=== PATIENT | female | born 1985 | race Caucasian/White ===

== ENCOUNTER 2016-06-05 12:47 | Emergency (ER) | payer MEDICAID ==
[~2016-06-05] VITALS: Ht 157.5 cm; Wt 59.0 kg
[~2016-06-05 12:47] MED LIST: ACET-1600 PO; ALBU8.5H5 INH; CARB200T PO; CEFD300C2 PO; LEVO750T6 PO; TOPI100T24 PO; TOPI200T25 PO; [UNRECOGNIZED DRUG - REMARK]
[2016-06-05] MEDS ORDERED: SODIUM CHLORIDE 0.9% 1,000 ML IV ONE (13:01)
[2016-06-05 13:25] LABS: HEMOGLOBIN 14.9 g/dL (11.7-16.4)
[2016-06-05] MEDS ORDERED: SODIUM CHLORIDE FLUSH 10ML SYR IVF ONE (13:30)
[2016-06-05 13:38] LABS: ASPARTATE AMINO TRANSFERASE 22 U/L (15-37); BLOOD UREA NITROGEN 11 mg/dL (7-18)
[2016-06-05 14:27] VITALS: BP 115/80
== END 2016-06-05 15:17 | disposition home or self-care (01) ==
LOC: ED 15:10
DX: S16.1XXA Strain of muscle, fascia and tendon at neck level, initial encounter (principal); S09.90XA Unspecified injury of head, initial encounter; G40.919 Epilepsy, unspecified, intractable, without status epilepticus; Z88.8 Allergy status to other drugs, medicaments and biological substances; X58.XXXA Exposure to other specified factors, initial encounter; Y93.89 Activity, other specified; Y92.89 Other specified places as the place of occurrence of the external cause; Y99.9 Unspecified external cause status
CPT/HCPCS: 36415; 70450; 72125; 80053; 84703; 85025; 96360; 96361; 99285; J7030

== ENCOUNTER 2016-07-06 21:14 | Emergency (ER) | payer MEDICAID ==
[~2016-07-06 21:14] MED LIST changes: -CEFD300C2 PO; +CEFD300C37 PO
== END 2016-07-06 21:47 | disposition left against medical advice (07) ==
LOC: ED 21:41
DX: R05 Cough (principal); R06.02 Shortness of breath; Z53.21 Procedure and treatment not carried out due to patient leaving prior to being seen by health care provider

== ENCOUNTER 2016-09-02 11:36 | Emergency (ER) | payer MEDICAID ==
[~2016-09-02] VITALS: Ht 157.5 cm; Wt 61.6 kg
[2016-09-02 11:37] VITALS: BP 113/80
== END 2016-09-02 13:00 | disposition home or self-care (01) ==
LOC: ED 12:40
DX: S60.211A Contusion of right wrist, initial encounter (principal); S60.221A Contusion of right hand, initial encounter; N30.01 Acute cystitis with hematuria; Z88.8 Allergy status to other drugs, medicaments and biological substances; Z91.013 Allergy to seafood; X58.XXXA Exposure to other specified factors, initial encounter; Y93.89 Activity, other specified; Y99.8 Other external cause status; Y92.410 Unspecified street and highway as the place of occurrence of the external cause
CPT/HCPCS: 81001

== ENCOUNTER 2016-09-26 15:05 | Emergency (ER) | payer MEDICAID ==
[~2016-09-26] VITALS: Ht 157.5 cm; Wt 60.2 kg
[2016-09-26] MEDS ORDERED: ONDANSETRON 2MG/ML, 2ML IVPush ONE (15:30)
[2016-09-26] MEDS ORDERED: FAMOTIDINE 20 MG/2 ML IVP ONE (15:30)
[2016-09-26] MEDS ORDERED: SODIUM CHLORIDE FLUSH 10ML SYR IVF ONE (15:30)
[2016-09-26] MEDS ORDERED: SODIUM CHLORIDE 0.9% 1,000ML IVBOLUS ONE (15:30)
[2016-09-26 15:41] LABS: HEMOGLOBIN 14.7 g/dL (11.7-16.4); WHITE BLOOD COUNT 11.9 x10^3/uL (3.4-10)
[2016-09-26] MEDS ORDERED: ONDANSETRON 2MG/ML, 2ML ONE (15:45)
[2016-09-26] MEDS ORDERED: FAMOTIDINE 20 MG/2 ML ONE (15:45)
[2016-09-26 15:50] LABS: ASPARTATE AMINO TRANSFERASE 21 U/L (15-37); BLOOD UREA NITROGEN 11 mg/dL (7-18)
[2016-09-26 16:16] LABS: DAU SCREEN DISCLAIMER
[2016-09-26] MEDS ORDERED: CEFTRIAXONE PMX 1GM/50ML 50 ML ONE ×2 (17:56→18:37)
[2016-09-26] MEDS: CEFTRIAXONE PMX 1GM/50ML 50 ML IVPB ONE ×2 (17:59→18:44)
[2016-09-26 19:18] VITALS: BP 124/91
== END 2016-09-26 19:24 | disposition home or self-care (01) ==
LOC: ED 16:50
DX: N30.90 Cystitis, unspecified without hematuria (principal); E86.0 Dehydration; R11.2 Nausea with vomiting, unspecified; F17.200 Nicotine dependence, unspecified, uncomplicated; G40.909 Epilepsy, unspecified, not intractable, without status epilepticus
CPT/HCPCS: 36415; 74020; 74177; 80053; 80307; 81001; 83690; 84703; 85025; 87077; 87086; 96361; 96365; 96375; 99285; J0696; J2405; J7030; 87186; S0028

== ENCOUNTER 2016-12-10 11:05 | Emergency (ER) | payer MEDICAID ==
[~2016-12-10] VITALS: Ht 160 cm; Wt 60.0 kg
[2016-12-10] MEDS ORDERED: KETOROLAC 30 MG/1 ML ONE (11:25)
[2016-12-10] MEDS ORDERED: SODIUM CHLORIDE FLUSH 10ML SYR IVF ONE (11:30)
[2016-12-10] MEDS ORDERED: SODIUM CHLORIDE 0.9% 1,000ML IVBOLUS ONE (11:30)
[2016-12-10] MEDS ORDERED: CHLORDIAZEPOXIDE 10 MG CAPSULE PO PRN (11:30)
[2016-12-10] MEDS ORDERED: KETOROLAC 30 MG/1 ML IVPush ONE (11:30)
[2016-12-10 12:05] LABS: HEMATOCRIT 49.3 % (34.6-47.8); HEMOGLOBIN 16.7 g/dL (11.7-16.4); WHITE BLOOD COUNT 12.3 x10^3/uL (3.4-10)
[2016-12-10 12:18] LABS: ASPARTATE AMINO TRANSFERASE 18 U/L (15-37); BLOOD UREA NITROGEN 17 mg/dL (7-18)
[2016-12-10] MEDS ORDERED: CEFTRIAXONE PMX 1GM/50ML 50 ML ONE (12:55)
[2016-12-10] MEDS ORDERED: CEFTRIAXONE PMX 1GM/50ML 50 ML IV ONE (13:00)
[2016-12-10] MEDS ORDERED: TOPI200T25 PO (13:18)
[2016-12-10] MEDS ORDERED: ALPR2TAB2 PO (13:18)
[2016-12-10] MEDS ORDERED: CARB200T PO ×2 (13:18)
[2016-12-10] MEDS ORDERED: TOPI100T24 PO (13:18)
[2016-12-10 13:33] VITALS: BP 113/80
== END 2016-12-10 13:37 | disposition home or self-care (01) ==
LOC: ED 12:49
DX: R07.9 Chest pain, unspecified (principal); F11.10 Opioid abuse, uncomplicated
CPT/HCPCS: 36415; 71010; 80053; 83605; 84145; 85025; 87040; 93005; 96361; 96365; 96375; 99285; J0696; J1885; J7030

== ENCOUNTER 2017-03-24 23:52 | Emergency (ER) | payer MEDICAID ==
[~2017-03-24] VITALS: Ht 160 cm; Wt 55.7 kg
[~2017-03-24 23:52] MED LIST changes: +ALPR2TAB2 PO
[2017-03-25] MEDS ORDERED: NALOXONE 1 MG/ML, 2ML ONE (00:27)
[2017-03-25] MEDS ORDERED: NALOXONE 1 MG/ML, 2ML IVPush ONE (00:30)
[2017-03-25] MEDS ORDERED: SODIUM CHLORIDE 0.9% 1,000ML IVBOLUS ONE (00:30)
[2017-03-25 07:23] VITALS: BP 114/82
== END 2017-03-25 07:51 | disposition home or self-care (01) ==
LOC: ED 23:59
DX: T40.601A Poisoning by unspecified narcotics, accidental (unintentional), initial encounter (principal); G93.40 Encephalopathy, unspecified; F15.10 Other stimulant abuse, uncomplicated; Z72.9 Problem related to lifestyle, unspecified; Z75.9 Unspecified problem related to medical facilities and other health care; Y92.89 Other specified places as the place of occurrence of the external cause
CPT/HCPCS: 96361; 96374; 99291; J2310; J7030

== ENCOUNTER 2017-06-03 11:27 | Emergency (ER) | payer MEDICAID ==
[~2017-06-03] VITALS: Ht 160 cm; Wt 60.0 kg
[2017-06-03] MEDS ORDERED: ASPIRIN 81 MG TABLET CHEW PO ONE (13:00)
[2017-06-03 13:22] LABS: BASOPHILS # (AUTO) 0.04 x10^3/uL (0-0.1); BASOPHILS % (AUTO) 0 % (0-1); EOSINOPHILS # (AUTO) 0.14 x10^3/uL (0-0.4); EOSINOPHILS % (AUTO) 1 % (1-7); LYMPHOCYTES # (AUTO) 1.82 x10^3/uL (1-3.4); LYMPHOCYTES % (AUTO) 11 % (22-44); MD NO; MEAN CORPUSCULAR HEMOGLOBIN 28.3 pg (27.0-34.8); MEAN CORPUSCULAR HGB CONC 33.3 g/dL (32.4-35.8); MEAN PLATELET VOLUME 8.6 fL (7.4-10.4); MONOCYTES # (AUTO) 0.94 x10^3/uL (0.2-0.8); MONOCYTES % (AUTO) 5 % (2-9); NEUTROPHILS # (AUTO) 14.29 x10^3/uL (1.8-6.8); NEUTROPHILS % (AUTO) 83 % (42-75); PLATELET COUNT 320 x10^3/uL (130-400); RED BLOOD COUNT 5.79 x10^6/uL (3.82-5.3); RED CELL DISTRIBUTION WIDTH 13.7 % (9.6-15.2)
[2017-06-03 13:32] LABS: ALBUMIN 3.7 g/dL (3.4-5.0); ANION GAP 5 mmol/L (5-15); CALCIUM 8.9 mg/dL (8.5-10.1); CHLORIDE 104 mmol/L (98-107); CREATININE 0.81 mg/dL (0.55-1.02)
[2017-06-03 13:35] LABS: TROPONIN I < 0.015 ng/mL (0.000-0.045)
[2017-06-03 14:11] VITALS: BP 110/81
== END 2017-06-03 15:17 | disposition home or self-care (01) ==
LOC: ED 14:45
DX: J15.9 Unspecified bacterial pneumonia (principal); G40.909 Epilepsy, unspecified, not intractable, without status epilepticus; F17.200 Nicotine dependence, unspecified, uncomplicated
CPT/HCPCS: 36415; 71045; 80048; 82040; 83880; 84484; 85025; 93005; 99285

== ENCOUNTER 2017-07-28 19:12 | Emergency (ER) | payer MEDICAID ==
[~2017-07-28] VITALS: Ht 160 cm; Wt 66.1 kg
[2017-07-28 19:15] VITALS: BP 127/86
== END 2017-07-28 20:20 | disposition home or self-care (01) ==
LOC: ED 19:47
DX: K02.9 Dental caries, unspecified (principal); K08.89 Other specified disorders of teeth and supporting structures
CPT/HCPCS: 99283

== ENCOUNTER 2018-06-04 15:18 | Emergency (ER) | payer SELFPAY ==
[~2018-06-04] VITALS: Ht 157.5 cm; Wt 64.0 kg
[2018-06-04 15:37] VITALS: BP 118/70
[2018-06-04] MEDS ORDERED: ACETAMINOPHEN 325 MG TABLET ONE (16:17)
[2018-06-04] MEDS ORDERED: ACETAMINOPHEN 325 MG TABLET PO ONE (16:30)
--- NOTE | 2018-06-04 16:47 | NUR ---
Patient/Caregiver given discharge instructions and they have confirmed that they understand the instructions. Patient ambulatory with steady gait.
== END 2018-06-04 16:49 | disposition home or self-care (01) ==
LOC: ED 16:48
DX: S63.642A Sprain of metacarpophalangeal joint of left thumb, initial encounter (principal); G40.909 Epilepsy, unspecified, not intractable, without status epilepticus; Z72.9 Problem related to lifestyle, unspecified; W51.XXXA Accidental striking against or bumped into by another person, initial encounter; Y93.89 Activity, other specified; Y92.89 Other specified places as the place of occurrence of the external cause; Y99.8 Other external cause status
CPT/HCPCS: 99283

== ENCOUNTER 2018-09-01 21:47 | Emergency (ER) | payer MEDICAID ==
[~2018-09-01] VITALS: Ht 157.5 cm; Wt 59.1 kg
[2018-09-01 21:49] VITALS: BP 112/78
== END 2018-09-01 22:29 | disposition home or self-care (01) ==
LOC: ED 22:23
DX: S16.1XXA Strain of muscle, fascia and tendon at neck level, initial encounter (principal); S60.222A Contusion of left hand, initial encounter; F15.20 Other stimulant dependence, uncomplicated; G40.909 Epilepsy, unspecified, not intractable, without status epilepticus; F17.210 Nicotine dependence, cigarettes, uncomplicated; Y04.0XXA Assault by unarmed brawl or fight, initial encounter; Y93.89 Activity, other specified; Y92.410 Unspecified street and highway as the place of occurrence of the external cause; Y99.8 Other external cause status
CPT/HCPCS: 29260; 72050; 99283

== ENCOUNTER 2018-09-09 01:42 | Emergency (ER) | payer MEDICAID ==
[~2018-09-09] VITALS: Ht 157.5 cm; Wt 58.4 kg
[2018-09-09 01:44] VITALS: BP 118/89
== END 2018-09-09 02:49 | disposition home or self-care (01) ==
LOC: ED 02:30
DX: L03.114 Cellulitis of left upper limb (principal); F15.129 Other stimulant abuse with intoxication, unspecified; F17.200 Nicotine dependence, unspecified, uncomplicated; G40.909 Epilepsy, unspecified, not intractable, without status epilepticus; Z72.9 Problem related to lifestyle, unspecified; Z91.14 Patient's other noncompliance with medication regimen
CPT/HCPCS: 99284

== ENCOUNTER 2019-03-01 18:39 | Emergency (ER) | payer MEDICAID ==
[~2019-03-01] VITALS: Ht 157.5 cm; Wt 63.7 kg
[~2019-03-01 18:39] MED LIST changes: +ACET325T26 PO; +NICO-486 TD
[2019-03-01 18:41] VITALS: BP 123/80
[2019-03-01] MEDS ORDERED: ALBUTEROL/IPRATROPIUM 2.5MG/0.5MG, 3 ML ONE (19:21)
[2019-03-01] MEDS ORDERED: AZITHROMYCIN 500 MG TABLET ONE (19:29)
[2019-03-01] MEDS ORDERED: ALBUTEROL/IPRATROPIUM 2.5MG/0.5MG, 3 ML NPPB ONE (19:30)
[2019-03-01] MEDS ORDERED: AZITHROMYCIN 500 MG TABLET PO ONE (19:30)
--- NOTE | 2019-03-01 20:36 | NUR ---
PT TO FOLLOW UP AT [facility]. PT ENCOURAGED TO RETURN TO THE ER IF ANY NEW OR WORSENING SYMPTOMS ARISE. PT ENCOURAGED TO UP WATER INTAKE AND TO REFRAIN FROM SMOKING. WHILE GIVEN PRIVACY TO CHANGE IN ROOM PT HEARD YELLING AT FRIEND IN ROOM "DON'T TOUCH ME BRO, GET YOUR HANDS OFF ME." PT AMBULATES INTO HALLWAY THEN TURNS TOWARD DISCHARGE WITH A STEADY GAIT AND REPEATEDLY STATING "HOW ARE YOU GUYS JUST GONNA LET SOMEONE TOUCH ME? PT. RESPS EVEN AND UNLABORED. COUGH STILL PRESENT.
== END 2019-03-01 20:38 | disposition home or self-care (01) ==
LOC: ED 20:30
DX: J20.9 Acute bronchitis, unspecified (principal); F17.200 Nicotine dependence, unspecified, uncomplicated; G40.909 Epilepsy, unspecified, not intractable, without status epilepticus
CPT/HCPCS: 71045; 93005; 94640; 99283; J7512; J7620

== ENCOUNTER 2019-08-28 12:47 | Emergency (ER) | payer MEDICAID ==
[~2019-08-28] VITALS: Ht 157.5 cm; Wt 43.0 kg
[2019-08-28] MEDS ORDERED: SODIUM CHLORIDE 0.9% 1,000 ML IV ONE ×2 (13:13→15:39)
[2019-08-28] MEDS ORDERED: SODIUM CHLORIDE FLUSH 10ML SYR IVF ONE (13:30)
[2019-08-28] MEDS ORDERED: SODIUM CHLORIDE 0.9% 1,000ML IVBOLUS ONE (13:30)
[2019-08-28] MEDS ORDERED: ONDANSETRON 2MG/ML, 2ML IVPush ONE (13:30)
[2019-08-28 13:31] LABS: MICROSCOPIC AUTO
[2019-08-28] MEDS ORDERED: MORPHINE SULFATE 4 MG/ML, 1ML ONE ×2 (13:33→15:45)
[2019-08-28] MEDS ORDERED: ONDANSETRON 2MG/ML, 2ML ONE (13:33)
[2019-08-28] MEDS: MORPHINE SULFATE 4 MG/ML, 1ML IVPush PRN ×2 (13:36→15:56)
--- NOTE | 2019-08-28 13:38 | NUR ---
URINE COLLECTED/SENT TO LAB. IV PLACED, LABS DRAWN WITH START. NS BOLUS AND MEDS GIVEN FOR 10/10 EPIGASTRIC PAIN. PT TO XRAY.
[2019-08-28 13:41] LABS: BASOPHILS # (AUTO) 0.14 x10^3/uL (0-0.1); BASOPHILS % (AUTO) 1 % (0-1); EOSINOPHILS # (AUTO) 0.17 x10^3/uL (0-0.4); EOSINOPHILS % (AUTO) 1 % (1-7); LYMPHOCYTES % (AUTO) 9 % (22-44); MD NO; MEAN CORPUSCULAR HEMOGLOBIN 28.8 pg (27.0-34.8); MEAN CORPUSCULAR HGB CONC 32.9 g/dL (32.4-35.8); MEAN CORPUSCULAR VOLUME 87.3 fL (80-100); MEAN PLATELET VOLUME 8.8 fL (7.4-10.4); MONOCYTES % (AUTO) 6 % (2-9); NEUTROPHILS # (AUTO) 14.71 x10^3/uL (1.8-6.8); NEUTROPHILS % (AUTO) 83 % (42-75); PLATELET COUNT 296 x10^3/uL (130-400); RED CELL DISTRIBUTION WIDTH 14.4 % (9.6-15.2)
[2019-08-28 13:52] LABS: ALANINE AMINOTRANSFERASE 42 U/L (12-78); ALBUMIN 3.4 g/dL (3.4-5.0); ANION GAP 4 mmol/L (5-15); CALCIUM 9.3 mg/dL (8.5-10.1); CHLORIDE 103 mmol/L (98-107); CREATININE 0.79 mg/dL (0.55-1.02)
[2019-08-28 13:57] LABS: ALKALINE PHOSPHATASE 110 U/L (45-117); BILIRUBIN,TOTAL 0.4 mg/dL (0.2-1.0); TOTAL PROTEIN 7.4 g/dL (6.4-8.2)
--- NOTE | 2019-08-28 14:05 | NUR ---
ERP IN TO [facility].
[2019-08-28] MEDS ORDERED: CEFTRIAXONE PMX 1GM/50ML 50 ML ONE (14:06)
[2019-08-28] MEDS ORDERED: CEFTRIAXONE PMX 1GM/50ML 50 ML IV ONE (14:30)
--- NOTE | 2019-08-28 15:56 | NUR ---
PT REMEDICATED PER ERP ORDER FOR RETURNING PAIN, 11/27 TO ABDOMEN. IV REPOSITIONED, INFUSING BETTER AT THIS TIME. VSS/UPDATED IN COMPUTER. Addendum: 08/28/19 at 1558 by ANANYA PT REQUESTING ADMIT, NOTE TO MD HURST.
[2019-08-28] MEDS ORDERED: SODIUM CHLORIDE FLUSH 10ML SYR IVF PRN (16:00)
[2019-08-28] MEDS ORDERED: KETOROLAC 30 MG/1 ML IVPush SCH (16:00)
[2019-08-28] MEDS ORDERED: NS + 20MEQ KCL 1,000 ML IV SCH (17:10)
[2019-08-28] MEDS ORDERED: KETOROLAC 30 MG/1 ML ONE (17:15)
--- NOTE | 2019-08-28 17:20 | NUR ---
PT SLEEPING, NAD. VSS. [facility] CHANGED ADMIT ORDER TO [facility]. NSR ON MONITOR.
[2019-08-28] MEDS ORDERED: hydrALAzine 20 MG/ML, 1ML IVPush PRN (17:30)
[2019-08-28] MEDS ORDERED: ONDANSETRON 2MG/ML, 2ML IVPush PRN (17:30)
[2019-08-28] MEDS ORDERED: LIDODERM 5% PATCH TD PRN (17:30)
[2019-08-28] MEDS ORDERED: ACETAMINOPHEN 325 MG TABLET PO PRN (17:30)
[2019-08-28] MEDS: ENOXAPARIN 40 MG/0.4 ML SQ SCH ×2 (17:30→19:00)
[2019-08-28] MEDS ORDERED: HYDROcodone/APAP 5/325 TABLET PO PRN (17:30)
[2019-08-28] MEDS ORDERED: ZOLPIDEM 5MG TABLET PO PRN (17:30)
[2019-08-28] MEDS ORDERED: LEVOFLOXACIN/PMX 750MG/150ML 150 ML IV SCH (17:30)
[2019-08-28] MEDS ORDERED: NICOTINE 21 MG/24 HR PATCH.TD24 TD SCH (17:30)
[2019-08-28] MEDS ORDERED: morphine SULFATE 10 MG/ML, 1ML IVPush PRN (17:30)
[2019-08-28] MEDS ORDERED: POLYETHYLENE GLYCOL 17 GM PACKET PO PRN (17:30)
[2019-08-28] MEDS ORDERED: BISACODYL 10 MG SUPP PR PRN (17:30)
[2019-08-28 17:59] LABS: HCT (SEDRATE) 42.3 % (34.6-47.8)
[2019-08-28 18:21] LABS: FREE T4 (FREE THYROXINE) 1.09 ng/dL (0.76-1.46)
[2019-08-28] MEDS ORDERED: NS + 20MEQ KCL 1,000 ML IV ONE (18:39)
[2019-08-28] MEDS ORDERED: ENOXAPARIN 40 MG/0.4 ML ONE (18:39)
[2019-08-28] MEDS ORDERED: LEVOFLOXACIN/PMX 750MG/150ML 150 ML ONE (18:39)
--- NOTE | 2019-08-28 19:31 | NUR ---
PT SLEEPING, NAD. CALL LIGHT WITHIN REACH.
[2019-08-28] MEDS ORDERED: NICOTINE 21 MG/24 HR PATCH.TD24 ONE (19:45)
--- NOTE | 2019-08-28 20:13 | NUR ---
PT ASSISTED UP TO BR. MEAL TRAY PROVIDED.
[2019-08-28 20:31] VITALS: BP 129/80
--- NOTE | 2019-08-28 20:40 | NUR ---
REPORT TO HEATHER RN, PT READY FOR TRANSPORT
--- NOTE | 2019-08-28 20:51 | NUR ---
PREPARING PT FOR TRANSPORT. PT AND SO ADVISED OF VISITING HOURS. PT UPSET THAT SO CAN'T STAY WITH HER IN ROOM AND STATES "IF HE CAN'T STAY WITH ME, I'M LEAVING". PT INSTRUCTED AGAIN ON POLICY, RISKS/CONSEQUENCES OF LEAVING AMA. PT NOT RECEPTIVE TO INSTRUCTION AND AGAIN STATES SHE IS LEAVING, YELLING AT THIS RN, "COVID IS A BUNCH OF BULLSHIT". IV DISCONTINUES. PT REFUSES TO SIGN AMA PAPERWORK AND LEAVES ED. THROUGHPUT, GLAZING DEPARTMENT SUPERVISOR, AND ED HIGHWAY RESEARCH ENGINEER INFORMED.
[2019-08-28] MEDS ORDERED: TOPIRAMATE 100 MG TABLET PO SCH (21:00)
[2019-08-28] MEDS ORDERED: FAMOTIDINE 20 MG TABLET PO SCH (21:00)
[2019-08-28] MEDS ORDERED: CARBAMAZEPINE 200 MG TABLET PO SCH (21:00)
[2019-08-30] MEDS ORDERED: methylPREDNISolone SOD SUCC 125 MG/2 ML ONE (22:14)
[2019-08-30] MEDS ORDERED: FAMOTIDINE 20 MG/2 ML ONE (22:14)
[2019-08-30] MEDS ORDERED: EPINEPHRINE 1 MG/ML, 1ML ONE (22:14)
== END 2019-08-28 21:06 | disposition left against medical advice (07) ==
LOC: ED 13:17 → UNDOADMIN 15:39 → EDIP 15:39
DX: N10 Acute pyelonephritis (principal); R10.13 Epigastric pain; R10.11 Right upper quadrant pain; F15.10 Other stimulant abuse, uncomplicated; F17.200 Nicotine dependence, unspecified, uncomplicated
CPT/HCPCS: 36415; 74022; 76700; 80053; 81001; 83690; 84439; 84443; 84703; 85025; 85651; 87040; 87077; 87086; 87186; 93005; 96365; 96366; 96367; 96368; 96375; 96376; 99285; J0696; J1885; J1956; J2270; J2405; J3480; J7030

== ENCOUNTER 2020-01-04 14:00 | Inpatient (IN) | payer MEDICAID ==
[~2020-01-04] VITALS: Ht 160 cm; Wt 66.8 kg
[2020-01-04 14:37] LABS: BASOPHILS % (AUTO) 0 % (0-1); EOSINOPHILS % (AUTO) 0 % (1-7); LYMPHOCYTES % (AUTO) 2 % (22-44); MEAN CORPUSCULAR HEMOGLOBIN 28.3 pg (27.0-34.8); MEAN CORPUSCULAR HGB CONC 32.5 g/dL (32.4-35.8); MEAN PLATELET VOLUME 7.7 fL (7.4-10.4); MONOCYTES % (AUTO) 5 % (2-9); NEUTROPHILS % (AUTO) 92 % (42-75); PLATELET COUNT 311 x10^3/uL (130-400); RED CELL DISTRIBUTION WIDTH 14.8 % (9.6-15.2)
[2020-01-04 14:45] LABS: ANION GAP 5 mmol/L (5-15); CALCIUM 9.1 mg/dL (8.5-10.1); CHLORIDE 104 mmol/L (98-107); CREATININE 0.81 mg/dL (0.55-1.02)
[2020-01-04 14:46] LABS: ALANINE AMINOTRANSFERASE 47 U/L (12-78); ALBUMIN 3.4 g/dL (3.4-5.0)
[2020-01-04 14:50] LABS: ALKALINE PHOSPHATASE 121 U/L (45-117); BILIRUBIN,TOTAL 0.8 mg/dL (0.2-1.0); TOTAL PROTEIN 7.3 g/dL (6.4-8.2)
--- NOTE | 2020-01-04 16:10 | NUR ---
PT C/O LOWER ABD PAIN THAT RADIATES INTO THE CHEST. PT STATES PAIN IS MORE OM THE LEFT SIDE. PT DENIES NV OR DIARRHEA. PT STATES HX OF KIDNEY INFECTIONS. PT STATES PAIN IN LOWER ABD WHEN PEEING, DENIES BURNING.
[2020-01-04 16:18] LABS: MD SCAN
[2020-01-04 16:42] LABS: MICROSCOPIC AUTO
[2020-01-04] MEDS ORDERED: SODIUM CHLORIDE FLUSH 10ML SYR IVF ONE (17:00)
[2020-01-04] MEDS ORDERED: ONDANSETRON 2MG/ML, 2ML IVPush ONE (17:00)
[2020-01-04] MEDS ORDERED: SODIUM CHLORIDE 0.9% 1,000ML IVBOLUS ONE ×2 (17:00→19:00)
[2020-01-04] MEDS ORDERED: HYDROmorphone 2 MG/ML, 1ML IVPush PRN (17:00)
[2020-01-04] MEDS ORDERED: ONDANSETRON 2MG/ML, 2ML ONE (17:04)
[2020-01-04] MEDS ORDERED: HYDROmorphone 1 MG/ML, 1ML INJ ONE (17:04)
--- NOTE | 2020-01-04 17:18 | NUR ---
OFF THE FLOOR TO CT AND ULTRASOUND
[2020-01-04] MEDS ORDERED: OMNIPAQUE 350 MG/ML, 100ML BOTTLE ONE (17:46)
--- NOTE | 2020-01-04 18:04 | NUR ---
PT BACK FROM CT. PT STATES PAIN IS BETTER AND RATES THE PAIN 6/10.
[2020-01-04] MEDS ORDERED: CEFTRIAXONE PMX 1GM/50ML 50 ML IV ONE (19:00)
--- NOTE | 2020-01-04 19:19 | NUR ---
RECEIVED BS REPORT FROM ARMAND MALIN TO ASSUME CARE OF PT. AT THIS TIME. PT. RESTING ON GURNEY WITH CALL LIGHT IN REACH. PT. TO BE ADMIT.
[2020-01-04] MEDS ORDERED: SODIUM CHLORIDE FLUSH 10ML SYR IVF PRN (19:30)
[2020-01-04] MEDS ORDERED: CEFTRIAXONE PMX 1GM/50ML 50 ML ONE (19:30)
--- NOTE | 2020-01-04 19:36 | NUR ---
2 SETS OF BLOOD CULTURES WERE COMPLETED PRIOR TO IV ABX. NS AND IV ABX INFUING PER MAR. PT. DENIES NEEDS.
[2020-01-04 19:48] LABS: AMPHETAMINE SCREEN, URINE Positive (Negative); BARBITURATE SCREEN, URINE Negative (Negative); BENZODIAZEPINE SCREEN, URINE Negative (Negative); CANNABINOID SCREEN, URINE Positive (Negative); COCAINE SCREEN, URINE Negative (Negative); METHADONE SCREEN, URINE Negative (Negative); OPIATE SCREEN, URINE Negative (Negative)
--- NOTE | 2020-01-04 19:48 | NUR ---
REPORT TO ARMAND COOPER. FLOOR READY FOR PT. TRANSPORT.
[2020-01-04 20:35] VITALS: BP 110/75
[2020-01-04] MEDS ORDERED: ACETAMINOPHEN 325 MG TABLET PO PRN (22:00)
[2020-01-04] MEDS ORDERED: hydrALAzine 20 MG/ML, 1ML IVPush PRN (22:00)
[2020-01-04] MEDS ORDERED: ONDANSETRON 2MG/ML, 2ML IVPush PRN (22:00)
[2020-01-04] MEDS: SODIUM CHLORIDE 0.9% 1,000 ML IV SCH (22:02)
[2020-01-04] MEDS: morphine SULFATE 10 MG/ML, 1ML IVPush PRN (22:02)
[2020-01-05] MEDS: morphine SULFATE 10 MG/ML, 1ML IVPush PRN ×2 (01:37→05:06)
[2020-01-05 01:39] VITALS: BP 99/61
[2020-01-05] MEDS: SODIUM CHLORIDE 0.9% 1,000 ML IV SCH (05:05)
[2020-01-05] MEDS ORDERED: BISACODYL 10 MG SUPP PR PRN (05:30)
[2020-01-05] MEDS ORDERED: POLYETHYLENE GLYCOL 17 GM PACKET NG ONE (05:30)
[2020-01-05] MEDS ORDERED: POLYETHYLENE GLYCOL 17 GM PACKET PO ONE (09:00)
[2020-01-05] MEDS ORDERED: CEFTRIAXONE PMX 1GM/50ML 50 ML IV SCH (19:30)
== END 2020-01-05 08:48 | disposition left against medical advice (07) | DRG 872 ==
LOC: ED 18:20 → EDIP 19:17 → 3N 19:55
PROVIDERS: ADMIT Family Medicine; ATTEND Hospitalist
DX: A41.9 Sepsis, unspecified organism (principal); N10 Acute pyelonephritis; G40.909 Epilepsy, unspecified, not intractable, without status epilepticus; E16.2 Hypoglycemia, unspecified; K59.00 Constipation, unspecified; F17.200 Nicotine dependence, unspecified, uncomplicated; F19.10 Other psychoactive substance abuse, uncomplicated; Z53.29 Procedure and treatment not carried out because of patient's decision for other reasons; E78.5 Hyperlipidemia, unspecified; B96.20 Unspecified Escherichia coli [E. coli] as the cause of diseases classified elsewhere; Z87.440 Personal history of urinary (tract) infections; Z88.8 Allergy status to other drugs, medicaments and biological substances; Z91.013 Allergy to seafood; Z91.14 Patient's other noncompliance with medication regimen; Z79.899 Other long term (current) drug therapy
CPT/HCPCS: 36415; 74177; 76830; 80053; 80307; 81001; 83036; 83605; 84703; 85025; 87040; 87077; 87086; 87186; G0378; J0696; J1170; J2405; Q9967; J2270; J7030